=== PATIENT | male | born 1990 | race Caucasian/White ===

== ENCOUNTER 2023-11-28 21:04 | Inpatient (IN) | payer MEDICAID, OTHER ==
[~2023-11-28] VITALS: Ht 172.7 cm; Wt 70.8 kg
[2023-11-29 00:11] LABS: BASOPHILS % (AUTO) 0.7 % (0.0-2.0); EOSINOPHILS % (AUTO) 9.5 % (1.0-6.0); HEMATOCRIT 31.7 % (41-53); HEMOGLOBIN 10.3 g/dL (13.5-17.5); LYMPHOCYTES % (AUTO) 23.6 % (22.0-44.0); MEAN CORPUSCULAR HEMOGLOBIN 28.4 pg (26.0-34.0); MEAN CORPUSCULAR HGB CONC 32.5 G/dL (31.0-37.0); MEAN CORPUSCULAR VOLUME 88 fL (80-100); MONOCYTES # (AUTO) 0.4 K/uL (0.1-1.0); MONOCYTES % (AUTO) 4.3 % (2.0-9.0); NEUTROPHILS # (AUTO) 5.3 K/uL (1.8-7.7); NEUTROPHILS % (AUTO) 61.9 % (40.0-70.0); PLATELET COUNT (AUTO) 349 K/uL (150-450); RED BLOOD CELL COUNT(AUTO) 3.62 MIL/uL (4.50-5.90); WHITE BLOOD COUNT (AUTO) 8.6 K/uL (4.5-11.0)
[2023-11-29 00:23] LABS: ANION GAP 10 mmol/L (8-16); CALCIUM, TOTAL 8.2 mg/dL (8.8-10.5); CARBON DIOXIDE 22 mmol/L (22-29); CHLORIDE 102 mmol/L (98-107); CREATININE 5.42 mg/dL (0.60-1.30); GLOMERULAR FILTR. RATE CALC 12 mL/min (>60); GLUCOSE,RANDOM 90 mg/dL (70-110); POTASSIUM 4.7 mmol/L (3.5-5.1); SODIUM SERUM 134 mmol/L (136-145); UREA NITROGEN, BLOOD 53 mg/dL (7-18)
[2023-11-29 00:31] LABS: ALANINE AMINOTRANSFERASE 13 U/L (12-78); ALBUMIN 1.9 g/dL (3.4-5.0); ALKALINE PHOSPHATASE 130 U/L (46-116); ASPARTATE AMINOTRANSFERASE 14 U/L (15-37); BILIRUBIN,TOTAL 0.2 mg/dL (0.1-1.0); TOTAL PROTEIN, SERUM 5.9 g/dL (6.4-8.2)
[2023-11-29 00:32] LABS: ACETAMINOPHEN < 2 mcg/mL (10-30)
[2023-11-29] MEDS: MORPHINE SULFATE 2 MG/ML SYRINGE IVP ONE ×2 (00:42→05:25)
[2023-11-29 01:06] LABS: ALCOHOL, BLOOD (SERUM) < 3 mg/dL (0-10)
[2023-11-29] MEDS: ACETAMINOPHEN 500 MG TABLET PO ONE ×2 (03:28→10:44)
[2023-11-29] MEDS: MAG HYDROX/ALUMINUM HYD/SIMETH 30 ML SUSPENSION UDCUP PO ONE (03:28)
[2023-11-29] MEDS: FAMOTIDINE 20 MG/2 ML VIAL IVP ONE (03:29)
[2023-11-29 04:27] LABS: SALICYLATE 0.5 mg/dL (2.8-20.0)
[2023-11-29 04:35] LABS: LIPASE 68 U/L (16-77)
[2023-11-29 05:22] LABS: COVID AG,FIA SOURCE NASAL SWAB
[2023-11-29] MEDS ORDERED: HALOPERIDOL 5 MG TABLET PO PRN (05:30)
[2023-11-29] MEDS ORDERED: LORazepam 2 MG TABLET PO PRN (05:30)
[2023-11-29 05:55] LABS: SARS-COV2 (COVID) ANTIGEN,FIA Negative (Negative)
[2023-11-29 07:05] LABS: GLUCOMETER DEV NAME(LOC) ER.7; GLUCOSE,POINT OF CARE 94 MG/DL (70-110)
[2023-11-29 08:56] VITALS: O2SAT 99
[2023-11-29 11:45] VITALS: BP 117/70; PULSE 76; RESP 18; TEMP 97.4; O2SAT 97
[2023-11-29] MEDS ORDERED: ALBUTEROL SULFATE HFA 90 MCG/PUFF 8 GM INHALER IH PRN (14:30)
[2023-11-29] MEDS ORDERED: ONDANSETRON 4 MG TABLET PO PRN (14:30)
[2023-11-29] MEDS ORDERED: DOCUSATE SODIUM 100 MG CAPSULE PO PRN (14:30)
[2023-11-29] MEDS ORDERED: PETROLATUM,WHITE 28 GM JELLY TP PRN (14:30)
[2023-11-29] MEDS ORDERED: MAGNESIUM HYDROXIDE SUSPENSION 30 ML UDCUP PO PRN (14:30)
[2023-11-29] MEDS ORDERED: CloNIDine HCL 0.1 MG TABLET PO PRN (14:30)
[2023-11-29] MEDS ORDERED: ACETAMINOPHEN 325 MG TABLET PO PRN (14:30)
[2023-11-29] MEDS ORDERED: IBUPROFEN 400 MG TABLET PO PRN (14:30)
[2023-11-29] MEDS ORDERED: NICOTINE 14 MG/24 HOUR PATCH TD PRN (14:30)
[2023-11-29] MEDS ORDERED: MAG HYDROX/ALUMINUM HYD/SIMETH ES 30 ML SUSPENSION UDCUP PO PRN (14:30)
[2023-11-29] MEDS ORDERED: GuaiFENesin/D-METHORPHAN [SUGAR-FREE] 200-20MG/10 ML SYRUP UDCUP PO PRN (14:30)
[2023-11-29] MEDS: SERTRALINE HCL 50 MG TABLET PO SCH (15:31)
[2023-11-29 22:59] VITALS: RESP 18
[2023-11-29 23:46] LABS: GLUCOMETER DEV NAME(LOC) 3E.I 2; GLUCOSE,POINT OF CARE 495 MG/DL (70-110)
[2023-11-30] MEDS: INSULIN LISPRO 100 UNITS/ML SQ PRN (00:02)
[2023-11-30 06:20] LABS: GLUCOMETER DEV NAME(LOC) 3E.I 2; GLUCOSE,POINT OF CARE 245 MG/DL (70-110)
[2023-11-30 08:16] LABS: HEMOGLOBIN A1C 9.6 % (3.8-5.6)
[2023-11-30 08:37] LABS: THYROID STIMULATING HORMONE 0.52 uIU/mL (0.36-3.74)
[2023-11-30 09:35] LABS: CHOL/HDL RATIO 2.9 (4.2-7.3)
[2023-11-30 12:26] LABS: GLUCOMETER DEV NAME(LOC) 3E.I 2; GLUCOSE,POINT OF CARE 310 MG/DL (70-110)
[2023-11-30 17:46] LABS: GLUCOMETER DEV NAME(LOC) 3E.I 2; GLUCOSE,POINT OF CARE 314 MG/DL (70-110)
[2023-11-30] MEDS: LOPERAMIDE HCL 2 MG CAPSULE PO PRN (18:49)
[2023-11-30 18:55] VITALS: BP 147/91; PULSE 79; RESP 18; TEMP 97.3; O2SAT 98
[2023-11-30 20:45] LABS: GLUCOMETER DEV NAME(LOC) 3E.I 2; GLUCOSE,POINT OF CARE 368 MG/DL (70-110)
[2023-11-30 22:05] VITALS: BP 145/83; PULSE 81; RESP 18; TEMP 97.6; O2SAT 96
[2023-11-30] MEDS: ZOLPIDEM TARTRATE 10 MG TABLET PO PRN (22:35)
[2023-12-01 07:10] LABS: GLUCOMETER DEV NAME(LOC) 3EX.2; GLUCOSE,POINT OF CARE 277 MG/DL (70-110)
[2023-12-01 08:00] VITALS: BP 144/89; PULSE 76; RESP 18; TEMP 98; O2SAT 97
[2023-12-01 10:15] LABS: CREATININE 6.17 mg/dL (0.60-1.30); POTASSIUM 5.5 mmol/L (3.5-5.1)
[2023-12-01 10:19] LABS: MAGNESIUM 2.4 mg/dL (1.80-2.40); PHOSPHORUS 5.5 mg/dL (2.5-4.9)
[2023-12-01 11:31] LABS: GLUCOMETER DEV NAME(LOC) 3E.I 2; GLUCOSE,POINT OF CARE 230 MG/DL (70-110)
[2023-12-01] MEDS: SODIUM ZIRCONIUM CYCLOSILICATE 5 GM POWDER PACKET PO ONE (11:54)
[2023-12-01] MEDS ORDERED: SERT-439 PO (12:20)
[2023-12-01] MEDS: SEVELAMER CARBONATE 800 MG TABLET PO SCH (12:28)
[2023-12-01] MEDS ORDERED: SEVE800T38 PO (15:18)
[2023-12-01] MEDS ORDERED: SODI650T33 PO (15:22)
[2023-12-01] MEDS: SODIUM BICARBONATE 650 MG TABLET PO SCH (16:29)
[2023-12-01 17:31] LABS: GLUCOMETER DEV NAME(LOC) 3E.I 2; GLUCOSE,POINT OF CARE 280 MG/DL (70-110)
[2023-12-01 21:16] LABS: GLUCOMETER DEV NAME(LOC) 3E.I 2; GLUCOSE,POINT OF CARE 268 MG/DL (70-110)
[2023-12-02 00:36] VITALS: BP 171/95; PULSE 77; RESP 18; TEMP 97.9; O2SAT 98
[2023-12-02 06:10] LABS: GLUCOMETER DEV NAME(LOC) 3E.I 2; GLUCOSE,POINT OF CARE 247 MG/DL (70-110)
[2023-12-02 09:13] LABS: CALCIUM, TOTAL 7.9 mg/dL (8.8-10.5); CREATININE 6.04 mg/dL (0.60-1.30); PHOSPHORUS 5.2 mg/dL (2.5-4.9); POTASSIUM 4.7 mmol/L (3.5-5.1)
[2023-12-02 09:16] LABS: % IRON SATURATION 72.8 % (30-44)
[2023-12-02] MEDS: AmLODIPine BESYLATE 5 MG TABLET PO SCH (09:32)
[2023-12-02 10:33] VITALS: BP 168/90; PULSE 77; RESP 18; TEMP 97.6; O2SAT 98
[2023-12-02 11:20] LABS: GLUCOMETER DEV NAME(LOC) 3E.I 2; GLUCOSE,POINT OF CARE 333 MG/DL (70-110)
[2023-12-02 16:56] LABS: GLUCOMETER DEV NAME(LOC) 3E.I 2; GLUCOSE,POINT OF CARE 316 MG/DL (70-110)
[2023-12-02] MEDS: SODIUM ZIRCONIUM CYCLOSILICATE 5 GM POWDER PACKET PO SCH (18:38)
[2023-12-02 20:05] LABS: GLUCOMETER DEV NAME(LOC) 3E.I 2; GLUCOSE,POINT OF CARE 367 MG/DL (70-110)
[2023-12-02 21:32] VITALS: RESP 18
[2023-12-03 05:36] LABS: GLUCOMETER DEV NAME(LOC) 3E.I 2; GLUCOSE,POINT OF CARE 224 MG/DL (70-110)
[2023-12-03 09:02] VITALS: BP 114/75; PULSE 79; RESP 18; TEMP 97.6; O2SAT 97
[2023-12-03 12:01] LABS: GLUCOMETER DEV NAME(LOC) 3E.I 2; GLUCOSE,POINT OF CARE 318 MG/DL (70-110)
[2023-12-03 17:31] LABS: GLUCOMETER DEV NAME(LOC) 3E.I 2; GLUCOSE,POINT OF CARE 387 MG/DL (70-110)
== END 2023-12-03 17:30 | disposition home or self-care (01) | DRG 751 ==
LOC: EMS 21:07 → 3EI 11-29 12:26
PROVIDERS: ADMIT Psychiatry & Neurology Child & Adolescent Psychiatry; ATTEND Psychiatry & Neurology Child & Adolescent Psychiatry
PROC: GZ56ZZZ Individual Psychotherapy, Supportive (ICD-10-PCS; principal; 2023-11-29)
DX: F33.2 Major depressive disorder, recurrent severe without psychotic features (principal); I12.0 Hypertensive chronic kidney disease with stage 5 chronic kidney disease or end stage renal disease; E87.20 Acidosis, unspecified; E87.1 Hypo-osmolality and hyponatremia; D64.9 Anemia, unspecified; E11.22 Type 2 diabetes mellitus with diabetic chronic kidney disease; R45.851 Suicidal ideations; E78.5 Hyperlipidemia, unspecified; Z20.822 Contact with and (suspected) exposure to COVID-19; E87.5 Hyperkalemia; N18.6 End stage renal disease; Z79.4 Long term (current) use of insulin
CPT/HCPCS: 80048; 80061; 80076; 82962; 83036; 83540; 83550; 83690; 83735; 84100; 84443; 85025; 93005; 99285; G0480; G0481; J2270; J3490